=== PATIENT | female | born 1985 | race Caucasian/White ===

== ENCOUNTER → 2017-05-23 | Day surgery (SDC) | payer OTHER ==
[~2017-05-23] MED LIST: LIDOCAINE 2% JELLY 5 ML TUBE ONE
== END ==
LOC: END 07:43
PROVIDERS: ATTEND Internal Medicine Gastroenterology
DX: K21.9 Gastro-esophageal reflux disease without esophagitis (principal)

== ENCOUNTER → 2017-06-20 | Outpatient (CLI) | payer OTHER ==
--- NOTE | 2017-06-20 14:48 | RADIOLOGY REPORT (SQ) ---
EXAM DESCRIPTION: BARIUM SWALLOW ESOPHAGUS COMPLETED DATE/TIME: 06/20/2017 10:14 am REASON FOR STUDY: REFLUX COMPARISON: None. TECHNIQUE: Under fluoroscopic guidance, patient ingested effervescent granules followed by thick and thin barium. Fluoroscopic spot images and routine radiographic images acquired and stored on PACS. 12 MM BARIUM TABLET GIVEN: Yes. No significant delay in passage. LIMITATIONS: None. FLUOROSCOPY TIME: FLUORO TIME: 1 minutes 32 seconds 8 series of digital images saved to PACS. FINDINGS: NEUROMUSCULAR COORDINATION OF SWALLOW: Normal. No aspiration. ESOPHAGEAL MOTILITY: Normal peristalsis. No esophageal spasm. ESOPHAGEAL MUCOSA: Normal mucosa without masses or ulceration. GASTRO-ESOPHAGEAL JUNCTION: Small sliding hiatal hernia. Mild gastroesophageal reflux in the distal esophagus. No Schatzki's ring or distal esophageal stricture. No distal esophageal mucosal abnormal ities NON-GI TRACT STRUCTURES: No significant finding. OTHER: No other significant finding. IMPRESSION: Small sliding hiatal hernia with mild gastroesophageal reflux in the distal esophagus COMMENT: Quality ID [id number]: Final reports for procedures using fluoroscopy that document radiation exp osure indices, or exposure time and number of fluorographic images (if radiation exposure indices are not available) TECHNICAL DOCUMENTATION: JOB ID: [id number] [email or web address] All Rights Reserved
== END ==
LOC: RAD 09:17
PROVIDERS: ATTEND Surgery
DX: K21.9 Gastro-esophageal reflux disease without esophagitis (principal); K44.9 Diaphragmatic hernia without obstruction or gangrene
CPT/HCPCS: 74220

== ENCOUNTER 2017-09-07 09:33 | Emergency (ER) | payer OTHER ==
--- NOTE | 2017-09-07 10:30 | ER Document Report ---
ED Medical Screen (RME) - General Chief Complaint: Swelling Stated Complaint: ARM NUMBNESS Time Seen by Provider: 09/07/17 10:26 Mode of Arrival: Ambulatory Information source: Patient Notes: This is a 31-year-old female with hypothyroidism who presents to the emergency room with swelling of the hands bilaterally, pain to the fingers bilaterally, with tightness of the arms. Patient denies any chest pain. Patient recently went to her primary care doctor for back pain and abdominal pain and was given tramadol (this is last Sunday). She developed hives and went to the [facility] that night and was given Benadryl. She was referred back to the primary care who told her just to continue with the Benadryl. She denies any shortness of breath. She denies any chest pain. The predominance of her symptoms involve swelling of the joints of the hands bilaterally with pain to the joints. Nothing to indicate acute stroke at this time. TRAVEL OUTSIDE OF THE [place] IN LAST 30 DAYS: No - Related Data Allergies/Adverse Reactions: Sulfa (Sulfonamide Antibiotics) Allergy (Verified 09/07/17 10:18) Past Medical History - Social History Chew tobacco use (# tins/day): No Drug Abuse: None Renal/ Medical History: Denies: Hx Peritoneal Dialysis Physical Exam - Vital signs Vitals: Temp Pulse Resp BP Pulse Ox 98.2 F 87 16 116/76 99 09/07/17 09:46 09/07/17 09:46 09/07/17 09:46 09/07/17 09:46 09/07/17 09:46 Course - Vital Signs Vital signs: Temp Pulse Resp BP Pulse Ox 98.2 F 87 16 116/76 99 09/07/17 09:46 09/07/17 09:46 09/07/17 09:46 09/07/17 09:46 09/07/17 09:46
[2017-09-07 12:20] LABS: ABSOLUTE EOSINOPHILS # (AUTO) 0.1 10^3/uL (0.0-0.6); ABSOLUTE LYMPHOCYTES (AUTO) 0.7 10^3/uL (0.5-4.7); ABSOLUTE MONOCYTES (AUTO) 0.4 10^3/uL (0.1-1.4); ABSOLUTE NEUT (AUTO) 2.9 10^3/uL (1.7-8.2); BASOPHILS % (AUTO) 0.5 % (0-2); EOSINOPHILS % (AUTO) 2.2 % (0-6); HEMATOCRIT 39.3 % (36.0-47.0); HEMOGLOBIN 13.3 g/dL (12.0-15.5); LYMPHOCYTES % (AUTO) 16.8 % (13-45); MEAN CORPUSCULAR HEMOGLOBIN 28.1 pg (27.0-33.4); MEAN CORPUSCULAR HGB CONC 33.9 g/dL (32.0-36.0); MEAN CORPUSCULAR VOLUME 83 fl (80-97); MONOCYTES % (AUTO) 9.5 % (3-13); PLATELET COUNT 277 10^3/uL (150-450); RED BLOOD COUNT 4.74 10^6/uL (3.72-5.28); RED CELL DISTRIBUTION WIDTH 12.7 % (11.5-14.0); TOTAL CELLS COUNTED % (AUTO) 100 %
[2017-09-07 12:40] LABS: ALANINE AMINOTRANSFERASE 48 U/L (9-52); ALBUMIN 3.9 g/dL (3.5-5.0); ALKALINE PHOSPHATASE 83 U/L (38-126); ANION GAP 8 (5-19); ASPARTATE AMINO TRANSFERASE 32 U/L (14-36); BILIRUBIN,DIRECT 0.4 mg/dL (0.0-0.4); BILIRUBIN,TOTAL 0.4 mg/dL (0.2-1.3); BLOOD UREA NITROGEN 8 mg/dL (7-20); C-REACTIVE PROTEIN 14.5 mg/L (<10.0); CARBON DIOXIDE 26 mmol/L (22-30); CHLORIDE 108 mmol/L (98-107); GLUCOSE 84 mg/dL (75-110); POTASSIUM 3.7 mmol/L (3.6-5.0); SODIUM 141.6 mmol/L (137-145); TOTAL PROTEIN 7.2 g/dL (6.3-8.2)
[2017-09-07] MEDS ORDERED: METHYLPREDNISOLONE INJ 125 MG/2 ML SDV IM ONE (12:42)
[2017-09-07 12:54] LABS: FREE T3 3.76 pg/mL (2.77-5.27); FREE T4 (FREE THYROXINE) 1.35 ng/dL (0.78-2.19)
[2017-09-07 12:59] LABS: ERYTHROCYTE SEDIMENTATION RATE 21 mm/hr (0-20)
[2017-09-07 13:07] LABS: THYROID STIMULATING HORMONE 0.59 uIU/mL (0.47-4.68)
--- NOTE | 2017-09-07 13:28 | ER Document Report ---
ED General - General Chief Complaint: Swelling Stated Complaint: ARM NUMBNESS Time Seen by Provider: 09/07/17 10:26 Mode of Arrival: Ambulatory Information source: Patient Notes: Patient is a 31-year-old female with a history of [place]'s, who presents to the ER today for swelling in her hands and feet, numbness and tingling in her legs, arms, hands and feet. Patient states that she was recently seen 2 days ago for an allergic reaction to tramadol and a different hospital and feels better from that, however has never had any swelling in her joints before. She denies being bitten by a tick that she knows of, any history of arthritis or lupus, other rheumatologic disorders. TRAVEL OUTSIDE OF THE [place] IN LAST 30 DAYS: No - Related Data Allergies/Adverse Reactions: Sulfa (Sulfonamide Antibiotics) Allergy (Verified 09/07/17 10:18) Past Medical History - General Information source: Patient - Social History Smoking Status: Unknown if Ever Smoked Chew tobacco use (# tins/day): No Drug Abuse: None Family History: Reviewed & Not Pertinent Patient has suicidal ideation: No Patient has homicidal ideation: No Renal/ Medical History: Denies: Hx Peritoneal Dialysis Review of Systems - Review of Systems Constitutional: No symptoms reported EENT: No symptoms reported Cardiovascular: No symptoms reported Respiratory: No symptoms reported Gastrointestinal: No symptoms reported Genitourinary: No symptoms reported Female Genitourinary: No symptoms reported Musculoskeletal: See HPI Skin: See HPI Hematologic/Lymphatic: No symptoms reported Neurological/Psychological: No symptoms reported Physical Exam - Vital signs Vitals: Temp Pulse Resp BP Pulse Ox 98.2 F 87 16 116/76 99 09/07/17 09:46 09/07/17 09:46 09/07/17 09:46 09/07/17 09:46 09/07/17 09:46 - Notes Notes: PHYSICAL EXAMINATION: GENERAL: Well-appearing and in no acute distress. HEAD: Atraumatic, normocephalic. EYES: Pupils equal round and reactive to light, extraocular movements intact, sclera anicteric, conjunctiva are normal. ENT: ear canals without erythema or foreign body, TMs pearly willams with good bony landmarks, nares patent, oropharynx clear without exudates. Moist mucous membranes. NECK: Normal range of motion, supple without lymphadenopathy LUNGS: CTAB and equal. No wheezes rales or rhonchi. HEART: Regular rate and rhythm without murmurs ABDOMEN: Soft, no tenderness. No guarding, no rebound BACK: no vertebral tenderness, normal ROM GI/: no CVA tenderness EXTREMITIES: Normal range of motion, no pitting edema. No cyanosis. NEUROLOGICAL: Cranial nerves grossly intact. Normal sensory/motor exams. PSYCH: Normal mood, normal affect. SKIN: Warm, Dry, normal turgor, no rashes or lesions noted Course - Re-evaluation Re-evalutation: 09/07/17 16:15 I do not really appreciate any swelling to patient's hands or legs, feet, but patient is insistent that they are swollen. Workup today including sed rate, CRP which are mildly elevated is really unremarkable, rheumatoid factor negative , I did give patient an injection of Solu-Medrol here. I advised that she follow-up with her primary care provider. - Vital Signs Vital signs: Temp Pulse Resp BP Pulse Ox 97.9 F 77 18 108/68 98 09/07/17 13:50 09/07/17 13:50 09/07/17 13:50 09/07/17 13:50 09/07/17 13:50 - Laboratory Result Diagrams: 09/07/17 12:00 09/07/17 12:00 Laboratory results interpreted by me: 09/07/17 09/07/17 12:00 12:00 ESR 21 H Chloride 108 H C-Reactive Protein 14.5 H Discharge - Discharge Clinical Impression: Joint swelling Condition: Stable Disposition: HOME, SELF-CARE Additional Instructions: Return immediately for any new or worsening symptoms. Follow up with primary care provider, call tomorrow to make followup appointment.
[2017-09-07 13:52] VITALS: BP 108/68
[2017-09-07] MEDS ORDERED: DIPHENHYDRAMINE HCL 50 MG CAPSULE PO ONE (13:59)
== END 2017-09-07 13:50 | disposition home or self-care (01) ==
LOC: ER 09:33
DX: M25.40 Effusion, unspecified joint (principal); R20.0 Anesthesia of skin; Z88.2 Allergy status to sulfonamides
CPT/HCPCS: 99283; 96372; 36415; 84439; 84443; 85025; 85652; 86140; 86430; 80053; 84481; J2930